=== PATIENT | male | born 2000 | race Caucasian/White ===

== ENCOUNTER 2021-12-14 18:02 | Emergency (ER) | payer OTHER ==
[~2021-12-14] VITALS: Ht 177.8 cm; Wt 88.6 kg
[2021-12-14 19:15] VITALS: BP 149/95
[2021-12-14] MEDS ORDERED: KETOROLAC TROMETHAMINE 60 MG/2 ML VIAL IM ONE (19:30)
[2021-12-14] MEDS ORDERED: METHOCARBAMOL 500 MG TABLET PO ONE (19:30)
[2021-12-14] MEDS ORDERED: GABAPENTIN 300 MG CAPSULE PO ONE (19:30)
[2021-12-14] MEDS ORDERED: NAPR-1025 PO (19:31)
[2021-12-14] MEDS ORDERED: GABA-1181 PO (19:31)
[2021-12-14] MEDS ORDERED: CYCL-448 PO (19:31)
== END 2021-12-14 19:49 | disposition home or self-care (01) ==
LOC: EMS 18:02
DX: S16.1XXA Strain of muscle, fascia and tendon at neck level, initial encounter (principal); S43.402A Unspecified sprain of left shoulder joint, initial encounter; S50.12XA Contusion of left forearm, initial encounter; V89.2XXA Person injured in unspecified motor-vehicle accident, traffic, initial encounter; Y93.89 Activity, other specified; Y92.89 Other specified places as the place of occurrence of the external cause; Y99.8 Other external cause status
CPT/HCPCS: 99283; 96372; J1885

== ENCOUNTER 2022-06-26 10:29 | Emergency (ER) | payer OTHER ==
[~2022-06-26] VITALS: Ht 177.8 cm; Wt 90.9 kg
[~2022-06-26 10:29] MED LIST: CYCL-448 PO; GABA-1181 PO; NAPR-1025 PO
[2022-06-26 12:38] VITALS: BP 147/70
[2022-06-26] MEDS ORDERED: AMOX1TAB16 PO (12:39)
== END 2022-06-26 13:05 | disposition home or self-care (01) ==
LOC: EMS 10:30
DX: H66.002 Acute suppurative otitis media without spontaneous rupture of ear drum, left ear (principal); H72.92 Unspecified perforation of tympanic membrane, left ear
CPT/HCPCS: 99283

== ENCOUNTER 2024-04-02 02:36 | Emergency (ER) | payer OTHER ==
[~2024-04-02] VITALS: Ht 177.8 cm; Wt 93.2 kg
[~2024-04-02 02:36] MED LIST changes: +AMOX-457 PO; -CYCL-448 PO; -GABA-1181 PO; -NAPR-1025 PO
[2024-04-02 02:51] VITALS: TEMP 99.5
[2024-04-02 03:13] LABS: COVID AG,FIA SOURCE NASAL SWAB
[2024-04-02 03:29] LABS: INFLUENZA TYPE B NEGATIVE FOR TYPE B (NEGATIVE)
[2024-04-02 03:30] LABS: SARS-COV2 (COVID) ANTIGEN,FIA Negative (Negative)
[2024-04-02 03:32] LABS: INFLUENZA TYPE A POSITIVE FOR TYPE A (NEGATIVE)
[2024-04-02] MEDS: OSELTAMIVIR PHOSPHATE 75 MG CAPSULE PO ONE (03:52)
[2024-04-02] MEDS: IBUPROFEN 600 MG TABLET PO ONE (03:52)
[2024-04-02] MEDS ORDERED: OSEL75CA45 PO (05:01)
[2024-04-02 05:20] VITALS: BP 142/82; PULSE 94; RESP 16; O2SAT 97
== END 2024-04-02 05:21 | disposition home or self-care (01) ==
LOC: EMS 02:38
DX: J10.1 Influenza due to other identified influenza virus with other respiratory manifestations (principal); Z20.822 Contact with and (suspected) exposure to COVID-19; R07.89 Other chest pain
CPT/HCPCS: 87804; 93005; 99284; Z7502; Z7610